=== PATIENT | female | born 1975 | race Caucasian/White ===

== ENCOUNTER → 2020-12-25 | Outpatient (CLI) | payer OTHER ==
[~2020-12-25] MED LIST: FLORASTOR250 MG PO; ZOFRAN ODT 4 MG4 MG SL
== END ==
LOC: KOH-I 14:44
DX: M54.5 Low back pain (principal); M51.36 Other intervertebral disc degeneration, lumbar region
CPT/HCPCS: 72100

== ENCOUNTER 2021-02-27 03:09 | Emergency (ER) | payer OTHER ==
[2021-02-27 03:35] LABS: HEMOGLOBIN 15.1 gm/dl (12.3-15.3); RED BLOOD COUNT 4.64 M/UL (4.00-5.10); WHITE BLOOD COUNT 17.9 K/UL (4.5-11.0)
[2021-02-27 03:52] LABS: BUN/CREATININE RATIO 21 (0-10)
[2021-02-27] MEDS ORDERED: ZOFRAN ODT 4 MG4 MG SL (05:11)
[2021-02-27] MEDS ORDERED: FLORASTOR250 MG PO (05:11)
== END 2021-02-27 05:15 | disposition home or self-care (01) ==
LOC: ER1 03:09
PROVIDERS: Emergency Medicine
DX: K52.9 Noninfective gastroenteritis and colitis, unspecified (principal); Z20.822 Contact with and (suspected) exposure to COVID-19
CPT/HCPCS: 80053; 83690; 85025; 96374; 99284; J2405; Q9967; U0002

== ENCOUNTER → 2021-07-22 | Outpatient (CLI) | payer BC | LOC: KOH-I 09:22 | DX: U07.1 COVID-19 (principal); J12.82 Pneumonia due to coronavirus disease 2019 | CPT/HCPCS: 71046 ==

== ENCOUNTER → 2021-08-26 | Outpatient (CLI) | payer BC ==
[~2021-08-26] MED LIST changes: +CEPHALEXIN500 MG PO
== END ==
LOC: KOH-I 09:51
DX: J32.9 Chronic sinusitis, unspecified (principal)
CPT/HCPCS: 70486

== ENCOUNTER 2021-08-27 21:38 | Emergency (ER) | payer BC ==
[~2021-08-27 21:38] MED LIST changes: -CEPHALEXIN500 MG PO
[2021-08-27] MEDS ORDERED: CEPHALEXIN500 MG PO (22:42)
== END 2021-08-27 23:00 | disposition home or self-care (01) ==
LOC: ER1 21:38
DX: S61.011A Laceration without foreign body of right thumb without damage to nail, initial encounter (principal); Z85.3 Personal history of malignant neoplasm of breast; X58.XXXA Exposure to other specified factors, initial encounter; Y92.009 Unspecified place in unspecified non-institutional (private) residence as the place of occurrence of the external cause
CPT/HCPCS: 12002; 73140; 99283